=== PATIENT | male | born 1990 | race African-American/Black ===

== ENCOUNTER 2019-06-15 08:35 | Outpatient (CLI) | payer OTHER ==
--- NOTE | 2019-06-15 10:00 | RAD ---
RIGHT HAND 3 VIEWS: HISTORY: Pain and swelling. FINDINGS: Irregular slightly comminuted volarly angulated fractures of the 4th and 5th metacarpals with marked overlying soft tissue swelling. IMPRESSION: Volarly angulated slightly comminuted fractures involving the 4th and 5th metacarpals with marked sof t tissue swelling. POS: [facility]
== END 2019-06-15 08:36 | disposition home or self-care (01) ==
LOC: RAD-FRANK 08:35
PROVIDERS: ATTEND Nurse Practitioner Family
DX: M79.641 Pain in right hand (principal); S62.304A Unspecified fracture of fourth metacarpal bone, right hand, initial encounter for closed fracture; S62.306A Unspecified fracture of fifth metacarpal bone, right hand, initial encounter for closed fracture; M79.89 Other specified soft tissue disorders

== ENCOUNTER 2022-03-18 09:10 | Emergency (ER) | payer SELFPAY ==
[2022-03-18] MEDS ORDERED: Ondansetron ODT 4 MG TAB ONE (10:51)
[2022-03-18] MEDS ORDERED: Ibuprofen 200 MG TAB ONE (10:51)
[2022-03-18 13:01] LABS: SARS-CoV-2 NAA Rapid Test DETECTED (NotDetected)
== END 2022-03-18 11:05 | disposition home or self-care (01) ==
LOC: ERS 09:10
DX: U07.1 COVID-19 (principal); J11.1 Influenza due to unidentified influenza virus with other respiratory manifestations
CPT/HCPCS: 99283; Q0162